=== PATIENT | male | born 1990 | race Caucasian/White ===

== ENCOUNTER 2019-08-05 06:48 | Emergency (ER) | payer MEDICAID, OTHER ==
[~2019-08-05] VITALS: Ht 167.6 cm; Wt 60.0 kg
[2019-08-05 06:54] VITALS: Ht 167.6 cm; Wt 60.0 kg
[2019-08-05] MEDS ORDERED: SOD CHLORIDE 0.9% 1,000 ML IV STA (07:14)
[2019-08-05 09:27] VITALS: BP 114/78; PULSE 72; RESP 18
== END 2019-08-05 09:28 | disposition home or self-care (01) ==
LOC: E/R 06:48
DX: R40.4 Transient alteration of awareness (principal); R40.2142 Coma scale, eyes open, spontaneous, at arrival to emergency department; R40.2362 Coma scale, best motor response, obeys commands, at arrival to emergency department; R40.2252 Coma scale, best verbal response, oriented, at arrival to emergency department; F12.90 Cannabis use, unspecified, uncomplicated; D64.9 Anemia, unspecified
CPT/HCPCS: 36415; 80053; 80307; 81001; 82962; 85025; 93005; 96360; J7030; Z7502